=== PATIENT | female | born 1980 | race Caucasian/White ===

== ENCOUNTER 2024-04-21 03:32 | Emergency (ER) | payer SELFPAY ==
--- OUTSIDE RECORDS SUMMARY | 2024-04-21 03:35 | XMS REPORT | Continuity of Care Document ---
Author Name Unknown Address [address] [facility] [address] [place] [address] 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 Name Role Phone Deepti Wagner Attending Clinician Unavailable Payers Payer Name Policy Type Policy Number Effective Date Expirati on Date Source [place] [address] [id number] 2015 00:00:00 [facility] Problems Condition Name Condition Details Condition Category Status Onset Date Resolution Date Last Treatment Date Treating Clinician Comments Source [id number] ADD (attention deficit disorder) without hyperactiv ity Problem [facility] Swelling Swelling Problem [facility] Gastroesop hageal reflux disease GERD (gastroeso phageal reflux disease) Problem [facility] [id number] Elevated blood pressure reading with diagnosis of hypertensi on Problem [facility] Gallstone Gallstone Problem [facility] Seasonal allergy Seasonal allergies Problem [facility] Memory problem Memory problem Problem [facility] [id number] Psoriasis Problem [facility] Allergies, Adverse Reactions, Alerts Allergy Name Allergy Type Status Severity Reaction(s) Onset Date Inactive Date Treating Clinician Comments Source 0 Drug allergy Active Unknown [facility] adalimum ab adalimum ab Active Unknown [facility] Social History Social Habit Start Date Stop Date Quantity Comments Source Sex Assigned At [facility] History of Tobacco Use [facility] Medications Ordered Medication Name Filled Medication Name Start Date Stop Date Current Medication? Ordering Clinician Indication Dosage Frequency Signature (SIG) Comments Components Source amLODIPine Besylate 2.5 MG amLODIPine Besylate 2.5 MG 2017-11 00:00: 00 No 1{table t} amLODIPine Besylate 2.5 MG hydroCHLORO thiazide 12.5 MG hydroCHLORO thiazide 12.5 MG 2017-11 00:00: 00 No 1{table t_in e_morni ng} QD hydroCHLOR Othiazide 12.5 MG amLODIPine Besylate 2.5 MG amLODIPine Besylate 2.5 MG 2017-11 00:00: 00 No 1{table t} amLODIPine Besylate 2.5 MG hydroCHLORO thiazide 12.5 MG hydroCHLORO thiazide 12.5 MG 2017-11 00:00: 00 No 1{table t_in e_morni ng} QD hydroCHLOR Othiazide 12.5 MG Losartan Potassium Losartan Potassium Yes Na Wagner 2 tablet Commo n [facility] Ashlyna 0.15-0.03 &0.01 MG Ashlyna 0.15-0.03 &0.01 MG No 1{table t} QD Ashlyna 0.15-0.03 &0.01 MG hydroCHLORO thiazide 12.5 hydroCHLORO thiazide 12.5 No 1{table t_in e_morni ng} QD hydroCHLOR Othiazide 12.5 Adderall 20 MG Adderall 20 MG No 1{table t} BID Adderall 20 MG Stelara 90 MG/ML Stelara 90 MG/ML No Stelara 90 MG/ML Losartan Potassium 50 MG Losartan Potassium 50 MG No 2{table t} QD Losartan Potassium 50 MG Adderall 20 MG Adderall 20 MG No 1{table t} BID Adderall 20 MG Ashlyna 0.15-0.03 &0.01 MG Ashlyna 0.15-0.03 &0.01 MG No 1{table t} QD Ashlyna 0.15-0.03 &0.01 MG hydroCHLORO thiazide 12.5 hydroCHLORO thiazide 12.5 No 1{table t_in e_morni ng} QD hydroCHLOR Othiazide 12.5 Stelara 90 MG/ML Stelara 90 MG/ML No Stelara 90 MG/ML Losartan Potassium 50 MG Losartan Potassium 50 MG No 2{table t} QD Losartan Potassium 50 MG Encounters Start Date/Time End Date/Time Encounter Type Admission Type Attending [facility] Care Facility Care Department Encounter ID Source 2022-02-04 11:02:00 Outpatient WagnerDeepti pineda STLMLC STLMLC [id number] [facility] 2021-11-28 14:31:02 Outpatient Deepti Wagner STLMLC STLMLC [id number] [facility] 2021-11-28 14:10:43 Outpatient Deepti Wagner STLC STLMLC [id number] [facility] 2022-02-04 00:00:00 2022-02-04 00:00:00 OFFICE VISIT ESTAB PT LEVEL 1 STLMLC STLMLC [id number] [facility] 2021-11-07 00:00:00 2021-11-07 00:00:00 OFFICE VISIT ESTAB PT LEVEL 1 STLMLC STLMLC [id number] [facility] 2021-11-07 00:00:00 2021-11-07 00:00:00 (TEL) STLMLC STLMLC [id number] [facility] 2021-08-02 00:00:00 2021-08-02 00:00:00 Outpatient PRIV PRIV [id number] [facility] 2021-08-02 00:00:00 2021-08-02 00:00:00 Outpatient PRIV PRIV [id number] [facility] 2021-08-02 00:00:00 2021-08-02 00:00:00 Outpatient PRIV PRIV [id number] [facility] 2021-08-02 00:00:00 2021-08-02 00:00:00 Outpatient PRIV PRIV [id number] [facility] 2018-11-10 10:11:00 2018-11-10 10:11:00 Outpatient Amparo t [facility] [id number] [facility] 2018-10-12 09:08:00 2018-10-12 09:08:00 Outpatient [facility] [id number] [facility] 2018-10-05 11:00:00 2018-10-05 11:00:00 Outpatient [facility] [id number] [facility] Results Test Description Test Time Test Comments Results Result Co mments Source SARS-COV 2 Antigen SARS-COV 2 Antigen
[2024-04-21 04:24] LABS: Absolute Eosinophils 0.3 K/uL (0-0.5); Absolute Lymphocytes (CBC) 2.4 K/uL (0.7-4.9); Absolute Monocytes 0.8 K/uL (0.1-1.3); Absolute Neutrophil 8.7 K/uL (1.8-8.0); Basophils % 0.4 % (0-1.3); Eosinophils % 2.2 % (0-4.4); Hematocrit 36.2 % (36.0-45.0); Lymphocytes % 19.6 % (15.3-44.8); MCH 25.5 pg (27.0-35.0); MCHC 33.2 g/dL (32.0-36.0); MCV 76.9 fL (80-100); MPV 8.1 fL (7.6-11.3); Monocytes % 6.6 % (3.3-12.3); Neutrophils % 71.2 % (41.7-73.7); Platelets 322 thou/uL (152-406); Red Cell Distribution Width 13.9 % (12.1-15.2)
[2024-04-21] MEDS ORDERED: ONDANSETRON 4 MG/2 ML VIAL ONE (04:26)
[2024-04-21] MEDS ORDERED: NA CHLORIDE 0.9% 1,000 ML ONE (04:27)
[2024-04-21] MEDS ORDERED: MAGNES/ALUMIN/SIMET 30ML UCUP ONE (04:27)
[2024-04-21] MEDS ORDERED: PANTOPRAZOLE 40 MG INJ ONE (04:27)
[2024-04-21] MEDS ORDERED: FAMOTIDINE 20 MG/2 ML VIAL IV ONE (04:27)
[2024-04-21 04:36] LABS: Albumin 3.2 g/dL (3.4-5.0); Albumin/Globulin Ratio 0.8 (1.1-1.8); Anion Gap 9.1 mEq/L (5.0-15.0); Bilirubin Total 0.3 mg/dL (0.2-1.0); Potassium 3.1 mEq/L (3.5-5.1); Protein, Total 7.2 g/dL (6.4-8.2)
--- NOTE | 2024-04-21 08:02 | RAD REPORT ---
EXAM DESCRIPTION: CT - Chest Abdomen Pelvis W Cont - 04/21/2024 7:14 am CLINICAL HISTORY: Chest and abdomen pain. esophageal pain sensation of foreign body COMPARISON: No comparisons TECHNIQUE: Approximately 100 mL nonionic IV contrast was administered to the patient. All CT scans are performed using dose optimization technique as appropriate and may include automated exposure control or mA/KV adjustment according to patient size. FINDINGS: There is mild linear atelectasis in both lung bases. The lungs are otherwise clear.No obi s esophageal abnormality seen.No pleural or pericardial effusion.No intrathoracic adenopathy. The liver demonstrates diffuse fatty infiltration. The spleen, pancreas, adrenal glands and kidneys a re within normal limits. Small benign cyst superior left kidney. Cholecystectomy clips. No bowel obstruction, free air, free fluid or abscess. Normal appendix. Moderate stool is present thr oughout the colon. Small fat containing umbilical hernia. No pathologic lymphadenopathy in the abdome n or pelvis. No worrisome osseous finding. IMPRESSION: No acute abnormality is detected.Grossly, no esophageal abnormality seen. Upper endoscop y would be suggested if clinical symptomology persists.
[2024-04-21 09:45] VITALS: BP 119/71; TEMP 98.1; O2SAT 97
--- NOTE | 2024-04-21 15:04 | ER ---
Nurse's Notes [facility] Name: Shelley Edmonds Age: 43 yrs Sex: Female : 1980 Arrival Date: 04/21/2024 Time: 03:32 Bed IW10 Private MD: Diagnosis: Dysphagia, unspecified;Dysphagia;Gastro-esophageal reflux disease with esophagitis Presentation: 04/21 03:50 Chief complaint: Patient states: SHE FEELS LIKE SOMETHING IN HER ESOPHAGUS SINCE lc8 YESTERDAY. REPORTS DIFFICULTY SWALLOWING. +NAUSEA. 03:50 Method Of Arrival: Ambulatory lc8 03:50 Coronavirus screen: Vaccine status: Patient reports receiving the 2nd dose of the covid lc8 vaccine. Ebola Screen: Patient negative for fever greater than or equal to 101.5 degrees Fahrenheit, and additional compatible Ebola Virus Disease symptoms Patient denies exposure to infectious person. Patient denies travel to an Ebola-affected area in the 21 days before illness onset. Initial Sepsis Screen: Does the patient meet any 2 criteria? No. Patient's initial sepsis screen is negative. Does the patient have a suspected source of infection? No. Patient's initial sepsis screen is negative. Risk Assessment: Do you want to hurt yourself or someone else? Patient reports no desire to harm self or others. Onset of symptoms was April 19, 2024. 03:50 Acuity: LUDA 3 lc8 Triage Assessment: 03:50 General: Appears in no apparent distress. comfortable, Behavior is calm, cooperative, lc8 appropriate for age. 03:50 EENT: Reports difficulty swallowing since YESTERDAY. Neuro: Level of Consciousness is lc8 awake, alert, obeys commands, Oriented to person, place, time, situation, Appropriate for age. Cardiovascular: Denies Capillary refill < 3 seconds Patient's skin is warm and dry. Respiratory: No deficits noted. Airway is patent Respiratory effort is even, unlabored, Respiratory pattern is regular, symmetrical, Denies. GI: Reports nausea, vomiting. : No signs and/or symptoms were reported regarding the genitourinary system. Denies. 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 - Infectious Disease History:: Denies. - Social history:: Smoking status: Patient reports the use of cigarette tobacco products, denies chronic smoking, but will smoke occasionally. - Family history:: not pertinent. Screenin:50 [facility] ED Fall Risk Assessment (Adult) History of falling in the last 3 months, lc8 including since admission No falls in past 3 months (0 pts) Confusion or Disorientation No (0 pts) Intoxicated or Sedated No (0 pts) Impaired Gait No (0 pts) Mobility Assist Device Used No (0 pt) Altered Elimination No (0 pt) Score/Fall Risk Level 0 - 2 = Low Risk. 03:50 [facility] ED Fall Risk Assessment (Adult) Score/Fall Risk Level 0 - 2 = Low Risk lc8 Oriented to surroundings, Maintained a safe environment, Hourly rounding (assess needs \T\ fall precautionary measures) done. Abuse screen: Denies threats or abuse. Denies injuries from another. Nutritional screening: No deficits noted. Tuberculosis screening: No symptoms or risk factors identified. Assessment: 03:50 Reassessment: SEE TRIAGE. lc8 05:00 Reassessment: Patient appears in no apparent distress at this time. Patient and/or lc8 family updated on plan of care and expected duration. Pain level reassessed. 05:00 General: Appears in no apparent distress. comfortable. Pain: Denies pain. lc8 06:00 Reassessment: Patient and/or family updated on plan of care and expected duration. Pain lc8 level reassessed. 06:46 Reassessment: No changes from previously documented assessment. lc8 07:37 Reassessment: No changes from previously documented assessment. Patient and/or family ap3 updated on plan of care and expected duration. Pain level reassessed. patient still feels as though something is stuck in her throat. 07:38 General: Appears in no apparent distress. comfortable, Behavior is calm, cooperative, ap3 appropriate for age. Vital Signs: 03:50 BP 121 / 76; Pulse 96; Resp 16; Temp 98.1(O); Pulse Ox 97% ; Weight 89.36 kg; Height 5 8 ft. 2 in. ; 05:00 BP 113 / 66; Pulse 88; Resp 17; Pulse Ox 97% on R/A; lc8 06:00 BP 111 / 51; Pulse 84; Resp 17; Pulse Ox 98% ; lc8 06:30 BP 125 / 61; Pulse 88; Resp 17; Pulse Ox 98% ; lc8 07:38 BP 119 / 71; Pulse 81; Resp 18; Pulse Ox 97% on R/A; ap3 03:50 Body Mass Index 36.03 (89.36 kg, 157.48 cm) lc8 Murphy Coma Score: 04:15 Eye Response: spontaneous(4). Motor Response: obeys commands(6). Verbal Response: sp4 oriented(5). Total: 15. ED Course: 03:35 Patient arrived in ED. jj6 03:49 Hai Tsai MD is Attending Physician. sp4 03:50 Patient has correct armband on for positive identification. Bed in low position. Call lc8 light in reach. Side rails up X 1. 03:50 Provided Education on: MEDICATION. lc8 04:06 Triage completed. lc8 04:15 Inserted saline lock: 20 gauge in right antecubital area, using aseptic technique. lc8 07:15 Jacki Pedro, RN is Primary Nurse. ap3 07:16 CT Chest, Abdomen, Pelvis - W/Contrast In Process Unspecified. EDMS 07:39 Attending Physician role handed off by Hai Tsai MD david 07:39 Rojelio Bone MD is Attending Physician. david 07:55 EKG done, by ED staff, reviewed by Rojelio Bone MD. ap3 08:01 Troponin High Sensitivity Sent. ap3 09:15 Manpreet Maki MD is Referral Physician. david 09:28 No provider procedures requiring assistance completed. IV discontinued, intact, ap3 bleeding controlled, No redness/swelling at site. Pressure dressing applied. 09:29 Splint/sling/ice applied as appropriate. ap3 Administered Medications: 04:39 Drug: Famotidine IVP 20 mg IVP once; dilute with 10 mL 0.9% NaCl; give over 2 minutes lc8 Route: IVP; Site: right antecubital; 04:39 Drug: Pantoprazole IVP 40 mg IVP once Route: IVP; Site: right antecubital; lc8 09:29 Follow up: Response: No adverse reaction ap3 04:39 Drug: Alum-Mag Hydroxide-Simeth PO Suspension (200 mg-200 mg-20 mg/5 mL) 30 ml PO once lc8 Route: PO; 09:30 Follow up: Response: No adverse reaction ap3 04:40 Drug: NS 0.9% IV 1000 ml IV at 1 bolus Per protocol; 1000 mL bolus Route: IV; Rate: 1 lc8 bolus; Site: right antecubital; 04:40 Drug: Ondansetron IVP 4 mg IVP once; over 2 minutes Route: IVP; Site: right antecubital;lc8 Medication: 03:50 VIS not applicable for this client. lc8 Outcome: 09:16 Discharge ordered by . david 09:28 Discharged to home ambulatory, ap3 09:28 Condition: good 09:28 Discharge instructions given to patient, Instructed on discharge instructions, follow up and referral plans. medication usage, Demonstrated understanding of instructions, follow-up care, medications, Prescriptions given X 1, 09:30 Patient left the ED. ap3 17:11 Patient left the ED. bd Signatures: Dispatcher [employer] EDMS Eladia Jo Corey, MD MD cha Prokisch, Amanda RN RN ap3 Breanna Austin Sergey, MD MD sp4 Amy Rouse, RN RN lc8 Corrections: (The following items were deleted from the chart) 07:39 07:38 BP 119 / 71; ap3 ap3
--- NOTE | 2024-04-21 15:04 | EDPHYS ---
Physician Documentation [facility] Name: Shelley Edmonds Age: 43 yrs Sex: Female : 1980 Arrival Date: 04/21/2024 Time: 03:32 Bed IW10 Private MD: Rojelio Mclaughlin HPI: 04/21 03:50 This 43 yrs old Female presents to ER via Unassigned with complaints of FEELS sp4 LIKE SOMETHING IS LODGED IN ESOPHAGAS. HARD TO SWALLOW AND PAIN. 04:14 43-year-old female with history of acid reflux on daily omeprazole presents with acute sp4 onset pain in the chest and sensation of foreign body in the esophagus starting yesterday morning. Patient denies actually swallowing anything that has lodged in esophagus but states she feels like there is a golf ball stuck in esophagus. . 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 - Infectious Disease History:: Denies. - Social history:: Smoking status: Patient reports the use of cigarette tobacco products, denies chronic smoking, but will smoke occasionally. - Family history:: not pertinent. ROS: 04:15 Constitutional: Negative for fever, chills, and weight loss, positive chest pain sp4 positive sensation of foreign body in esophagus 04:15 All other systems are negative, Exam: 04:15 Constitutional: This is a well developed, well nourished patient who is awake, alert, sp4 and in no acute distress. Head/Face: Normocephalic, atraumatic. Eyes: Pupils equal round and reactive to light, extra-ocular motions intact. Lids and lashes normal. Conjunctiva and sclera are not injected. Cornea within normal limits. Periorbital areas with no swelling, redness, or edema. ENT: Nares patent. No nasal discharge, no septal abnormalities noted. Tympanic membranes are normal and external auditory canals are clear. Oropharynx with no redness, swelling, or masses, exudates, or evidence of obstruction, uvula midline. Mucous membranes moist. Neck: Trachea midline, no thyromegaly or masses palpated, and no cervical lymphadenopathy. Supple, full range of motion without nuchal rigidity, or vertebral point tenderness. Chest/axilla: Normal chest wall appearance and motion. Nontender with no deformity. No lesions are appreciated. Cardiovascular: Regular rate and rhythm with a normal S1 and S2. No gallops, murmurs, or rubs. Normal PMI, no JVD. No pulse deficits. Respiratory: Lungs have equal breath sounds bilaterally, clear to auscultation and percussion. No rales, rhonchi or wheezes noted. No increased work of breathing, no retractions or nasal flaring. Abdomen/GI: Soft, with normal bowel sounds. No distension or tympany. No guarding or rebound. No evidence of tenderness throughout. Back: No spinal tenderness. No costovertebral tenderness. Skin: Warm, dry with normal turgor. Normal color with no rashes, no lesions, and no evidence of cellulitis. MS/ Extremity: Pulses equal, no cyanosis. Neurovascular intact. Full, normal range of motion. Neuro: Awake and alert, GCS 15, oriented to person, place, time, and situation. Cranial nerves II-XII grossly intact. Motor strength 5/5 in all extremities. Sensory grossly intact. Psych: Awake, alert, with orientation to person, place and time. Behavior, mood, and affect are within normal limits 17:08 ECG was reviewed by the Attending Physician. [facility] Vital Signs: 03:50 BP 121 / 76; Pulse 96; Resp 16; Temp 98.1(O); Pulse Ox 97% ; Weight 89.36 kg; Height 5 lc8 ft. 2 in. ; 05:00 BP 113 / 66; Pulse 88; Resp 17; Pulse Ox 97% on R/A; lc8 06:00 BP 111 / 51; Pulse 84; Resp 17; Pulse Ox 98% ; lc8 06:30 BP 125 / 61; Pulse 88; Resp 17; Pulse Ox 98% ; lc8 07:38 BP 119 / 71; Pulse 81; Resp 18; Pulse Ox 97% on R/A; ap3 03:50 Body Mass Index 36.03 (89.36 kg, 157.48 cm) 8 Eagle Coma Score: 04:15 Eye Response: spontaneous(4). Motor Response: obeys commands(6). Verbal Response: sp4 oriented(5). Total: 15. MDM: 03:51 Patient medically screened. sp4 07:25 Differential Diagnosis altered mental status, sepsis, Esophageal food impaction. Data sp4 reviewed: vital signs, nurses notes, lab test result(s), radiologic studies, CT scan. Transition of care: After a detail discussion of the patient's case, care is transferred to Rojelio Bone MD. 17:09 Care significantly affected by the following chronic conditions: gerd. ED course: pt is david eating and drinking well, only pain with swallow but able to do both without difficulty. 04/21 03:50 Order name: CBC with Diff; Complete Time: 07:00 [facility] 04/21 03:50 Order name: CMP; Complete Time: 07:00 [facility] 04/21 03:50 Order name: Lipase; Complete Time: 07:00 [facility] 04/21 07:40 Order name: Troponin High Sensitivity; Complete Time: 09:14 [facility] 04/21 07:00 Order name: CT Chest, Abdomen, Pelvis - W/Contrast; Complete Time: 08:10 [facility] 04/21 07:40 Order name: EKG; Complete Time: 07:40 [facility] 04/21 03:50 Order name: IV Saline Lock; Complete Time: 04:39 [facility] 04/21 03:50 Order name: Labs collected and sent; Complete Time: 04:40 [facility] 04/21 07:40 Order name: EKG - Nurse/Tech; Complete Time: 07:55 [facility] 04/21 07:42 Order name: PO challenge: juice; Complete Time: 08:01 [facility] EC:08 Rate is 80 beats/min. Rhythm is regular. QRS [place] is Normal. [place] interval is normal. QRS david interval is normal. QT interval is prolonged at 505 msec. No Q waves. T waves are Normal. No ST changes noted. Clinical impression: NSR w/ Non-specific ST/T Changes and No evidence of ischemia. Administered Medications: 04:39 Drug: Famotidine IVP 20 mg IVP once; dilute with 10 mL 0.9% NaCl; give over 2 minutes lc8 Route: IVP; Site: right antecubital; 04:39 Drug: Pantoprazole IVP 40 mg IVP once Route: IVP; Site: right antecubital; lc8 09:29 Follow up: Response: No adverse reaction ap3 04:39 Drug: Alum-Mag Hydroxide-Simeth PO Suspension (200 mg-200 mg-20 mg/5 mL) 30 ml PO once lc8 Route: PO; 09:30 Follow up: Response: No adverse reaction ap3 04:40 Drug: NS 0.9% IV 1000 ml IV at 1 bolus Per protocol; 1000 mL bolus Route: IV; Rate: 1 lc8 bolus; Site: right antecubital; 04:40 Drug: Ondansetron IVP 4 mg IVP once; over 2 minutes Route: IVP; Site: right antecubital;lc8 Disposition Summary: 04/21/24 09:16 Discharge Ordered Notes: Location: Home david Problem: new david Symptoms: have improved david Condition: Stable david Diagnosis - Dysphagia, unspecified david - Dysphagia david - Gastro-esophageal reflux disease with esophagitis david Followup: david - With: Private Physician - When: 2 - 3 days - Reason: Recheck today's complaints, Continuance of care, Re-evaluation by your physician Followup: david - With: Manpreet Maki MD - When: 2 - 3 days - Reason: Recheck today's complaints, Continuance of care, Re-evaluation by your physician Discharge Instructions: - Discharge Summary Sheet david - Food Choices for Gastroesophageal Reflux Disease, Adult david - Dysphagia david - Esophagitis david - Gastroesophageal Reflux Disease, Adult david - Gastroesophageal Reflux Disease, Adult, [id number] david - Indigestion, [id number] [facility] Forms: - Medication Reconciliation Form david - Antibiotic Education david - Prescription Opioid Use david - Patient Portal Instructions [facility] - Leadership Thank You Letter [facility] Prescriptions: - Protonix 40 mg Oral tablet, delayed release (enteric coated) - take 1 tablet ORAL route every 12 hours; 60 tablet; Refills: 0, Product [facility] Selection Permitted Signatures: Dispatcher [employer] EDRojelio Ty MD MD cha Potepalov, Sergey, MD MD sp4 Amy Rouse RN RN lc8 Jacki Pedro RN ap3 Corrections: (The following items were deleted from the chart) 03:51 03:51 CBC+H.LAB.BRZ ordered. EDMS EDMS 03:51 03:51 COMPREHENSIVE METABOLIC PANEL+C.LAB.BRZ ordered. EDMS EDMS 03:51 03:51 LIPASE+C.LAB.BRZ ordered. EDMS EDMS
== END 2024-04-21 17:11 | disposition home or self-care (01) ==
LOC: ER 03:32
DX: K21.00 Gastro-esophageal reflux disease with esophagitis, without bleeding (principal)
CPT/HCPCS: 36415; 71260; 74177; 80053; 83690; 84484; 85025; 93005; C9113; J2405; J7030; Q9967

== ENCOUNTER 2024-11-04 20:14 | Emergency (ER) | payer OTHER, SELFPAY ==
--- OUTSIDE RECORDS SUMMARY | 2024-11-04 20:16 | XMS REPORT | Continuity of Care Document ---
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 Deepti Wagner Attending Clinician Unavailable Payers Payer Name Policy Type Policy Number Effective Date Expirati on Date Source [place] [address] [id number] 2015 00:00:00 [facility] Problems Condition Name Condition Details Condition Category Status Onset Date Resolution Date Last Treatment Date Treating Clinician Comments Source [id number] ADD (attention deficit disorder) without hyperactiv ity Problem Common [facility] Swelling Swelling Problem [facility] Gastroesop hageal reflux disease GERD (gastroeso phageal reflux disease) Problem [facility] [id number] Elevated blood pressure reading with diagnosis of hypertensi on Problem Common [facility] Gallstone Gallstone Problem Comm on [facility] Seasonal allergy Seasonal allergies Problem [facility] Memory problem Memory problem Problem [facility] [id number] Psoriasis Problem [facility] Allergies, Adverse Reactions, Alerts Allergy Name Allergy Type Status Severity Reaction(s) Onset Date Inactive Date Treating Clinician Comments Source 0 Drug allergy Active Unknown [facility] adalimum ab adalimum ab Active Unknown [facility] Social History Social Habit Start Date Stop Date Quantity Comments Source Sex Assigned At [facility] History of Tobacco Use Common [facility] Medications Ordered Medication Name Filled Medication Name [...] Yes Na Wagner 2 tablet Commo n [facility] Ashlyna 0.15-0.03 &0.01 MG Ashlyna 0.15-0.03 &0.01 [...] End Date/Time Encounter Type Admission Type Attending [facility] Care Facility Care Department Encounter ID Source 2022-02-04 11:02:00 Outpatient Deepti Wagner STLMLC STLMLC [id number] [facility] 2021-11-28 14:31:02 Outpatient Deepti Wagner STLMLC STLMLC [id number] [facility] 2021-11-28 14:10:43 Outpatient Deepti Wagner STLC STLMLC [id number] [facility] 2022-02-04 00:00:00 2022-02-04 00:00:00 OFFICE VISIT ESTAB PT LEVEL 1 STLMLC STLMLC [id number] [facility] 2021-11-07 00:00:00 2021-11-07 00:00:00 OFFICE VISIT ESTAB PT LEVEL 1 STLMLC STLMLC [id number] [facility] 2021-11-07 00:00:00 2021-11-07 00:00:00 (TEL) STLMLC STLMLC [id number] [facility] 2021-08-02 00:00:00 2021-08-02 00:00:00 Outpatient PRIV PRIV [id number] [facility] 2021-08-02 00:00:00 2021-08-02 00:00:00 Outpatient PRIV PRIV [id number] [facility] 2021-08-02 00:00:00 2021-08-02 00:00:00 Outpatient PRIV PRIV [id number] [facility] 2021-08-02 00:00:00 2021-08-02 00:00:00 Outpatient PRIV PRIV [id number] [facility] 2018-11-10 10:11:00 2018-11-10 10:11:00 Outpatient Amparo t [facility] [id number] [facility] 2018-10-12 09:08:00 2018-10-12 09:08:00 Outpatient [facility] [id number] [facility] 2018-10-05 11:00:00 2018-10-05 11:00:00 Outpatient [facility] [id number] [facility] Results Test Description Test Time Test Comments Results Result Co mments Source SARS-COV 2 Antigen SARS-COV 2 Antigen
[2024-11-04 20:46] LABS: Absolute Basophils 0.1 K/uL (0-0.5); Absolute Eosinophils 0.3 K/uL (0-0.5); Absolute Lymphocytes (CBC) 2.9 K/uL (0.7-4.9); Absolute Monocytes 0.7 K/uL (0.1-1.3); Absolute Neutrophil 4.9 K/uL (1.8-8.0); Basophils % 1.4 % (0-1.3); Hematocrit 38.3 % (36.0-45.0); MCH 27.2 pg (27.0-35.0); MCHC 34.1 g/dL (32.0-36.0); MCV 79.8 fL (80-100); MPV 8.4 fL (7.6-11.3); Monocytes % 7.5 % (3.3-12.3); Neutrophils % 55.1 % (41.7-73.7); Nucleated Red Blood Cells % 0.1 % (0-0); Platelets 288 thou/uL (152-406); RBC Red Blood Cell Count 4.79 M/uL (3.86-4.86); Red Cell Distribution Width 14.9 % (12.1-15.2)
[2024-11-04 20:48] LABS: PT Prothrombin Time 12.6 SECONDS (9.4-12.5); Protime INR 1.13
[2024-11-04 21:05] LABS: ALT/SGPT 100 U/L (13-56); AST/SGOT 69 U/L (15-37); Albumin 3.5 g/dL (3.4-5.0); Albumin/Globulin Ratio 0.8 (1.1-1.8); Alkaline Phosphatase 135 U/L (45-117); Anion Gap 9.7 mEq/L (5.0-15.0); BUN Blood Urea Nitrogen 10 mg/dL (7-18); Bicarbonate 27 mEq/L (21-32); Bilirubin Direct < 0.2 mg/dL (0-0.2); Bilirubin Indirect, Calculated 0.2 mg/dL (0.2-0.8); Bilirubin Total 0.4 mg/dL (0.2-1.0); Globulin 4.4 g/dL (2.3-3.5); Glomerular Filtration Rate 113 ml/min (=/>90); Glucose Level 93 mg/dL (74-106); NT PRO-BNP 50 pg/mL (<125); Potassium 2.7 mEq/L (3.5-5.1); Protein, Total 7.9 g/dL (6.4-8.2); Sodium Level 136 mEq/L (136-145); Troponin High Sensitivity 13.1 pg/mL (<58.9)
[2024-11-04] MEDS ORDERED: GABAPENTIN 300 MG CAP ONE (21:16)
[2024-11-04] MEDS ORDERED: ONDANSETRON 4 MG/2 ML VIAL ONE (21:16)
[2024-11-04] MEDS ORDERED: hydroCHLOROthiazide 25 MG TAB ONE (21:16)
--- NOTE | 2024-11-04 21:16 | RAD REPORT ---
EXAMINATION: ONE VIEW CHEST XR CLINICAL INDICATION: CHEST PAIN TECHNIQUE: Frontal chest projection is submitted. Examination is limited by patient positioning and t echnique. COMPARISON: No prior exam. FINDINGS: Mild interstitial pulmonary edema may be present. Heart is mildly enlarged in size. No displaced frac tures identified. IMPRESSION: Possible mild CHF pattern.
[2024-11-04] MEDS ORDERED: MORPHINE 4 MG/ML SYR ONE (21:17)
[2024-11-04] MEDS ORDERED: LOSARTAN POTASSIUM 50 MG TABLET ONE (21:17)
[2024-11-04] MEDS ORDERED: NA CHLORIDE 0.9% 1,000 ML ONE (21:17)
--- NOTE | 2024-11-04 21:46 | RAD REPORT ---
EXAM: CTA of the chest, abdomen and pelvis HISTORY: Chest pain and back pain chest pain , rule out dissection COMPARISON: None TECHNIQUE: Multiple contiguous axial images were obtained a CTA of the chest and abdomen with contras t per aortic dissection protocol. This involves 3D reconstructions, MIPs, volume rendered images and/or shaded surface rendering. One or more of the following dose reduction techniques were used: Au tomated exposure control, adjustment of the mA and/or kV according to patient size, and/or iterative reconstruction. Unless otherwise specified, incidental findings do not require dedicated im aging follow-up. Sagittal and coronal 3-D MIP reformats were performed. FINDINGS: PULMONARY ARTERIES: Normal in caliber without filling defects to suggest pulmonary emboli. ASCENDING THORACIC AORTA: Normal caliber without evidence of dissection or aneurysmal dilatation. DESCENDING THORACIC AORTA: Normal caliber without evidence of dissection or aneurysmal dilatation. ABDOMINAL AORTA: Normal caliber without evidence of dissection or aneurysmal dilatation. CELIAC TRUNK: Patent. SMA: Patent LUCIO: Patent RENAL ARTERIES: Bilateral single renal arteries without significant atherosclerotic disease. MEDIASTINUM: No hilar or mediastinal lymphadenopathy. LUNGS: No focal infiltrates or masses. PLEURAL SPACE: No pleural effusion or pneumothorax. LIVER: Liver is enlarged with diffuse fatty alteration.. Cholecystomy clips. SPLEEN: Unremarkable. PANCREAS: Unremarkable. KIDNEYS: Unremarkable. ADRENALS: Unremarkable. BOWEL: Unremarkable. RETROPERITONEUM: No lymphadenopathy. BONES: Unremarkable ADDITIONAL FINDINGS: Moderate fat-containing ventral hernia. IMPRESSION: No evidence of thoracic or abdominal aortic aneurysm or dissection. Advanced fatty liver.
[2024-11-04] MEDS ORDERED: HYDROCODONE/APAP 5/325 MG TAB ONE (23:08)
[2024-11-04] MEDS ORDERED: DIAZEPAM 5 MG TABLET ONE (23:08)
--- NOTE | 2024-11-04 23:58 | ER ---
Nurse's Notes [facility] Name: Shelley Edmonds Age: 44 yrs Sex: Female : 1980 Arrival Date: 11/04/2024 Time: 20:14 Bed 12 Private MD: Diagnosis: Chest pain, unspecified;Uncontrolled hypertension, Acute anxiety, noncardiac chest pain Presentation: 11/04 20:16 Chief complaint: Patient states: chest pain and high BP X4 days. out of BP meds X3 lg3 months. Coronavirus screen: Client denies travel out of the [place] in the last 14 days. At this time, the client does not indicate any symptoms associated with coronavirus-19. Ebola Screen: No symptoms or risks identified at this time. Risk Assessment: Do you want to hurt yourself or someone else? Patient reports no desire to harm self or others. Onset of symptoms is unknown. 20:16 Method Of Arrival: Ambulatory lg3 20:16 Acuity: LUDA 3 lg3 20:26 Initial Sepsis Screen: Does the patient meet any 2 criteria? No. Patient's initial vc1 sepsis screen is negative. Does the patient have a suspected source of infection? No. Patient's initial sepsis screen is negative. Triage Assessment: 20:17 General: Appears in no apparent distress. uncomfortable, Behavior is calm, cooperative. lg3 Pain: Complains of pain in chest Pain does not radiate. EENT: No deficits noted. No signs and/or symptoms were reported regarding the EENT system. Neuro: No deficits noted. Solorzano Agitation-Sedation Scale (RASS): 0 - Alert and Calm Level of Consciousness is awake, alert, obeys commands, Oriented to person, place, time, situation. Cardiovascular: Reports chest pain, Capillary refill < 3 seconds Clubbing of nail beds is absent JVD is absent Patient's skin is warm and dry. Respiratory: No deficits noted. Airway is patent Respiratory effort is even, unlabored, Respiratory pattern is regular, symmetrical. GI: No deficits noted. No signs and/or symptoms were reported involving the gastrointestinal system. Abdomen is round non-distended. : No signs and/or symptoms were reported regarding the genitourinary system. Derm: No deficits noted. No signs and/or symptoms reported regarding the dermatologic system. Skin is intact, is healthy with good turgor, Skin is dry, Skin is normal, Skin temperature is warm. Musculoskeletal: No deficits noted. No signs and/or symptoms reported regarding the musculoskeletal system. Circulation, motion, and sensation intact. Range of motion: intact in all extremities. 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 - Infectious Disease History:: Denies. - Social history:: Smoking status: Patient reports the use of cigarette tobacco products, smokes one-half pack cigarettes per day, Patient uses alcohol, only on a social basis. Patient/guardian denies using street drugs. - Family history:: not pertinent. Screenin:27 [facility] ED Fall Risk Assessment (Adult) History of falling in the last 3 months, vc1 including since admission No falls in past 3 months (0 pts) Confusion or Disorientation No (0 pts) Intoxicated or Sedated No (0 pts) Impaired Gait No (0 pts) Mobility Assist Device Used No (0 pt) Altered Elimination No (0 pt) Score/Fall Risk Level 0 - 2 = Low Risk Oriented to surroundings, Maintained a safe environment, Educated pt \T\ family on fall prevention, incl call for assistance when getting out of bed. Abuse screen: Denies threats or abuse. Nutritional screening: No deficits noted. Tuberculosis screening: No symptoms or risk factors identified. Assessment: 21:20 General: Appears in no apparent distress. uncomfortable, Behavior is calm, cooperative, cp4 appropriate for age. 21:20 Pain: Complains of pain in chest Pain does not radiate. Pain currently is 10 out of 10 cp4 on a pain scale. Pain began suddenly. Neuro: Level of Consciousness is awake, alert, obeys commands, Oriented to person, place, time, situation. Cardiovascular: Patient's skin is warm and dry. Rhythm is sinus rhythm. Respiratory: Airway is patent Respiratory effort is even, unlabored. GI: No deficits noted. : No deficits noted. EENT: No deficits noted. Derm: No deficits noted. Musculoskeletal: No deficits noted. 11/05 01:13 Reassessment: Patient appears in no apparent distress at this time. Patient and/or vc1 family updated on plan of care and expected duration. Pain level reassessed. Patient is alert, oriented x 3, equal unlabored respirations, skin warm/dry/pink. Patient denies pain at this time. Patient states feeling better. Patient states symptoms have improved. Vital Signs: 11/04 20:16 BP 171 / 104; Pulse 82; Resp 17; Temp 96.7(TE); Pulse Ox 100% on R/A; Weight 81.65 kg; lg3 Height 5 ft. 2 in. ; 11/05 01:13 BP 140 / 93; Pulse 80; Resp 18; Temp 97.9; Pulse Ox 95% ; vc1 11/04 20:16 Body Mass Index 32.92 (81.65 kg, 157.48 cm) lg3 Sanborn Coma Score: 11/04 23:55 Eye Response: spontaneous(4). Motor Response: obeys commands(6). Verbal Response: sp4 oriented(5). Total: 15. ED Course: 20:15 Patient arrived in ED. jj6 20:17 Triage completed. lg3 20:17 Arm band placed on right wrist. lg3 20:22 EKG done, by ED staff. Patient maintains SpO2 saturation greater than 95% on room air. lg3 20:24 Hai Tsai MD is Attending Physician. sp4 20:29 Patient placed in waiting room. EKG completed in triage. Results shown to MD. vc1 20:38 Basic Metabolic Panel Sent. vc1 20:38 CBC with Diff Sent. vc1 20:38 LFT's Sent. vc1 20:38 NT PRO-BNP Sent. vc1 20:38 PT-INR Sent. vc1 20:38 Troponin HS Sent. vc1 21:12 XRAY Chest (1 view) In Process Unspecified. EDMS 21:12 Shira Gutierrez is Primary Nurse. cp4 21:20 Bed in low position. Call light in reach. Side rails up X 1. Client placed on 4 continuous cardiac and pulse oximetry monitoring. NIBP monitoring applied. laboratory monitor on. Pulse ox on. NIBP on. 21:20 No provider procedures requiring assistance completed. Inserted saline lock: 20 gauge cp4 in right antecubital area, using aseptic technique. 21:40 CT Aorta for Dissection In Process Unspecified. EDMS 23:57 Davey Cruz MD is Referral Physician. sp4 11/05 01:14 Provided Education on: f/u with PCP. vc1 01:14 IV discontinued, intact, bleeding controlled, No redness/swelling at site. Pressure vc1 dressing applied. Administered Medications: 11/04 21:25 Drug: Losartan PO 100 mg PO once Route: PO; cp4 22:00 Follow up: Response: No adverse reaction cp4 21:25 Drug: Hydrochlorothiazide PO 25 mg PO once Route: PO; cp4 22:00 Follow up: Response: No adverse reaction cp4 21:25 Drug: morphine IVP or IV 4 mg IVP once over 4 mins Route: IVP; Infused Over: 4 mins; cp4 Site: right antecubital; 22:01 Follow up: Response: No adverse reaction cp4 21:25 Drug: Gabapentin PO 900 mg PO once Route: PO; cp4 22:01 Follow up: Response: No adverse reaction cp4 21:25 Drug: Ondansetron IVP 4 mg IVP once; over 2 minutes Route: IVP; Site: right antecubital;cp4 22:01 Follow up: Response: No adverse reaction cp4 21:25 Drug: NS 0.9% IV 1000 ml IV at 1 bolus Per protocol; to be given as a bolus over 60 cp4 minutes Route: IV; Rate: 1 bolus; Site: right antecubital; 22:25 Follow up: IV Status: Completed infusion; IV Intake: 1000ml vc1 23:10 Drug: Diazepam PO 5 mg PO once Route: PO; cp4 11/05 01:14 Follow up: Response: No adverse reaction; Marked relief of symptoms vc1 11/04 23:10 Drug: HYDROcodone-acetaminophen PO 5 mg-325 mg 2 tabs PO once Route: PO; cp4 11/05 01:14 Follow up: Response: No adverse reaction; Marked relief of symptoms vc1 Medication: 11/04 20:28 VIS not applicable for this client. vc1 Intake: 22:25 IV: 1000ml; Total: 1000ml. vc1 Outcome: 23:58 Discharge ordered by MD. sp4 11/05 01:13 Discharged to home ambulatory, with family, vc1 Condition: good Discharge instructions given to patient, Instructed on discharge instructions, follow up and referral plans. medication usage, Demonstrated understanding of instructions, follow-up care, medications, Prescriptions given X 4, 01:14 Patient left the ED. vc1 Signatures: Dispatcher [employer] EDKristina Jones RN RN lg3 Breanna Austin jj6 Nunu Olvera RN RN vc1 Hai Tsai MD MD sp4 Shira Gutierrez 4 Corrections: (The following items were deleted from the chart) 11/04 20:21 20:16 Chief complaint: Patient states: chest pain and high BP X4 days lg3 lg3 20:21 20:16 Temp 96.7F Temporal; 81.65 kg; Height 5 ft. 2 in.; BMI: 32.9; lg3 lg3
--- NOTE | 2024-11-04 23:58 | EDPHYS ---
Physician Documentation [facility] Name: Shelley Edmonsd Age: 44 yrs Sex: Female : 1980 Arrival Date: 11/04/2024 Time: 20:14 Bed 12 Private MD: ED Physician Hai Tsai HPI: 11/04 20:53 This 44 yrs old Female presents to ER via Ambulatory with complaints of Chest sp4 Pain, High Blood Pressure. 11/05 21:08 44-year-old female presents with chest pain discomfort and also elevated blood sp4 pressure. . 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 - Infectious Disease History:: Denies. - Social history:: Smoking status: Patient reports the use of cigarette tobacco products, smokes one-half pack cigarettes per day, Patient uses alcohol, only on a social basis. Patient/guardian denies using street drugs. - Family history:: not pertinent. ROS: 11/05 21:08 Constitutional: Negative for fever, chills, and weight loss, positive chest pain and sp4 elevated blood pressure All other systems are negative, Exam: 11/04 23:55 Constitutional: This is a well developed, well nourished patient who is awake, alert, sp4 and in no acute distress. Head/Face: Normocephalic, atraumatic. Eyes: Pupils equal round and reactive to light, extra-ocular motions intact. Lids and lashes normal. Conjunctiva and sclera are not injected. Cornea within normal limits. Periorbital areas with no swelling, redness, or edema. ENT: Nares patent. No nasal discharge, no septal abnormalities noted. Tympanic membranes are normal and external auditory canals are clear. Oropharynx with no redness, swelling, or masses, exudates, or evidence of obstruction, uvula midline. Mucous membranes moist. Neck: Trachea midline, no thyromegaly or masses palpated, and no cervical lymphadenopathy. Supple, full range of motion without nuchal rigidity, or vertebral point tenderness. Chest/axilla: Normal chest wall appearance and motion. Nontender with no deformity. No lesions are appreciated. Cardiovascular: Regular rate and rhythm with a normal S1 and S2. No gallops, murmurs, or rubs. Normal PMI, no JVD. No pulse deficits. Respiratory: Lungs have equal breath sounds bilaterally, clear to auscultation and percussion. No rales, rhonchi or wheezes noted. No increased work of breathing, no retractions or nasal flaring. Abdomen/GI: Soft, with normal bowel sounds. No distension or tympany. No guarding or rebound. No evidence of tenderness throughout. Back: No spinal tenderness. No costovertebral tenderness. Skin: Warm, dry with normal turgor. Normal color with no rashes, no lesions, and no evidence of cellulitis. MS/ Extremity: Pulses equal, no cyanosis. Neurovascular intact. Full, normal range of motion. Neuro: Awake and alert, GCS 15, oriented to person, place, time, and situation. Cranial nerves II-XII grossly intact. Motor strength 5/5 in all extremities. Sensory grossly intact. Psych: Awake, alert, with orientation to person, place and time. Behavior, mood, and affect are within normal limits ECG was reviewed by the Attending Physician. EKG at 2022 normal sinus rhythm rate 79. Vital Signs: 20:16 BP 171 / 104; Pulse 82; Resp 17; Temp 96.7(TE); Pulse Ox 100% on R/A; Weight 81.65 kg; lg3 Height 5 ft. 2 in. ; 11/05 01:13 BP 140 / 93; Pulse 80; Resp 18; Temp 97.9; Pulse Ox 95% ; vc1 11/04 20:16 Body Mass Index 32.92 (81.65 kg, 157.48 cm) lg3 [place] Coma Score: 11/04 23:55 Eye Response: spontaneous(4). Motor Response: obeys commands(6). Verbal Response: sp4 oriented(5). Total: 15. MDM: 20:24 Medical Screening Exam initiated sp4 21:30 ED course: EXAMINATION: ONE VIEW CHEST XR CLINICAL INDICATION: CHEST PAIN TECHNIQUE: sp4 Frontal chest projection is submitted. Examination is limited by patient positioning and technique. COMPARISON: No prior exam. FINDINGS: Mild interstitial pulmonary edema may be present. Heart is mildly enlarged in size. No displaced fractures identified. IMPRESSION: Possible mild CHF pattern. . 11/05 00:01 ED course: CT chest today - ADDITIONAL FINDINGS: Moderate fat-containing ventral sp4 hernia. IMPRESSION: No evidence of thoracic or abdominal aortic aneurysm or dissection. Advanced fatty liver. . 21:08 Differential diagnosis: acute pericarditis, anxiety, chest wall pain, esophagitis, sp4 gastritis. HEART Score: History: Slightly Suspicious (0), ECG: Normal (0), Age: < or = 45 years (0), Risk Factors: 1 or 2 risk factors (1), Troponin: < or = 1 x Normal Limit (0), Total Score = 1. Data reviewed: vital signs, nurses notes, old medical records, lab test result(s), EKG, radiologic studies, CT scan. ED course: Cardiac workup negative today, no sign of thoracic aortic dissection. Patient advised to see quantitative analyst developer for outpatient follow-up. Pain completely resolved after p.o. Valium. Patient prescribed as needed Valium for anxiety. Losartan and HCTZ for hypertension. Further patient was prescribed atorvastatin for risk reduction.. 11/04 20:24 Order name: Basic Metabolic Panel; Complete Time: 21:30 [facility] 11/04 20:24 Order name: CBC with Diff; Complete Time: 21: [facility] 11/04 20:24 Order name: LFT's; Complete Time: 21:30 [facility] 11/04 20:24 Order name: NT PRO-BNP; Complete Time: 21:30 [facility] 11/04 20:24 Order name: PT-INR; Complete Time: 21: [facility] 11/04 20:24 Order name: Troponin HS; Complete Time: 21:30 [facility] 11/04 22:52 Order name: Troponin High Sensitivity; Complete Time: 23:50 [facility] 11/04 20:24 Order name: XRAY Chest (1 view); Complete Time: 21:30 [facility] 11/04 21:01 Order name: CT Aorta for Dissection; Complete Time: 22:52 sp4 11/04 20:24 Order name: EKG; Complete Time: 20:25 sp4 11/04 22:59 Order name: EKG; Complete Time: 22:59 sp4 11/04 20:24 Order name: Cardiac monitoring; Complete Time: 21:04 sp4 11/04 20:24 Order name: EKG - Nurse/Tech; Complete Time: 20:30 sp4 11/04 20:24 Order name: IV Saline Lock; Complete Time: 20:38 sp4 11/04 20:24 Order name: Labs collected and sent; Complete Time: 20:38 sp4 11/04 20:24 Order name: O2 Per Protocol; Complete Time: 20:30 sp4 11/04 20:24 Order name: O2 Sat Monitoring; Complete Time: 20:30 sp4 11/04 22:59 Order name: EKG - Nurse/Tech; Complete Time: 23:06 sp4 EC/02 20:23 Rate is 79 beats/min. Rhythm is regular, Normal Sinus Rhythm. QRS [place] is Normal. PA sp4 interval is normal. QRS interval is normal. QT interval is normal. No Q waves. T waves are Normal. No ST changes noted. Clinical impression: No evidence of ischemia. Interpreted by me. Reviewed by me. Administered Medications: 21:25 Drug: Losartan PO 100 mg PO once Route: PO; cp4 22:00 Follow up: Response: No adverse reaction cp4 21:25 Drug: Hydrochlorothiazide PO 25 mg PO once Route: PO; cp4 22:00 Follow up: Response: No adverse reaction cp4 21:25 Drug: morphine IVP or IV 4 mg IVP once over 4 mins Route: IVP; Infused Over: 4 mins; cp4 Site: right antecubital; 22:01 Follow up: Response: No adverse reaction cp4 21:25 Drug: Gabapentin PO 900 mg PO once Route: PO; cp4 22:01 Follow up: Response: No adverse reaction cp4 21:25 Drug: Ondansetron IVP 4 mg IVP once; over 2 minutes Route: IVP; Site: right antecubital;cp4 22:01 Follow up: Response: No adverse reaction cp4 21:25 Drug: NS 0.9% IV 1000 ml IV at 1 bolus Per protocol; to be given as a bolus over 60 cp4 minutes Route: IV; Rate: 1 bolus; Site: right antecubital; 22:25 Follow up: IV Status: Completed infusion; IV Intake: 1000ml vc1 23:10 Drug: Diazepam PO 5 mg PO once Route: PO; cp4 11/05 01:14 Follow up: Response: No adverse reaction; Marked relief of symptoms vc1 11/04 23:10 Drug: HYDROcodone-acetaminophen PO 5 mg-325 mg 2 tabs PO once Route: PO; cp4 11/05 01:14 Follow up: Response: No adverse reaction; Marked relief of symptoms vc1 Disposition Summary: 11/04/24 23:58 Discharge Ordered Notes: Location: Home sp4 Problem: new sp4 Symptoms: have improved sp4 Condition: Stable sp4 Diagnosis - Chest pain, unspecified sp4 - Uncontrolled hypertension, Acute anxiety, noncardiac chest pain sp4 Followup: sp4 - With: Davey Cruz MD - When: 7 - 10 days - Reason: Recheck today's complaints Discharge Instructions: - Discharge Summary Sheet sp4 - Hypertension, Adult, [id number] sp4 Forms: - Work release form vc1 - Patient Portal Instructions sp4 Prescriptions: - atorvastatin 10 mg Oral tablet - take 1 tablet ORAL route daily; 90 tablet; Refills: 0, Product Selection sp4 Permitted - losartan 100 mg Oral tablet - take 1 tablet ORAL route daily; 90 tablet; Refills: 0, Product Selection sp4 Permitted - Valium 5 mg Oral tablet - take 1 tablet ORAL route once daily As needed PRN anxiety attacks; 20 tablet; sp4 Refills: 0, Product Selection Permitted - Hydrochlorothiazide 25 mg Oral tablet - take 1 tablet ORAL route once daily .; 90 tablet; Refills: 0, Product Selection sp4 Permitted Signatures: Dispatcher [employer] EDKristina Jones RN RN lg3 Hai Tsai MD MD sp4 Shira Gutierrez cp4 Nunu Olvera RN vc1 Corrections: (The following items were deleted from the chart) 11/04 20:25 20:25 BASIC METABOLIC PANEL+C.LAB.BRZ ordered. EDMS EDMS 20:25 20:25 CBC+H.LAB.BRZ ordered. EDMS EDMS 20:25 20:25 HEPATIC FUNCTION+C.LAB.BRZ ordered. EDMS EDMS 20:25 20:25 PROBNP+C.LAB.BRZ ordered. EDMS EDMS 20:25 20:25 PROTIME (+INR)+COAG.LAB.BRZ ordered. EDMS EDMS 20:25 20:25 Troponin High Sensitivity+C.LAB.BRZ ordered. EDMS EDMS
[2024-11-05 09:04] VITALS: BP 140/93; TEMP 97.9; O2SAT 95
--- NOTE | 2024-11-05 12:39 | EKG ---
Test Date: 2024-11-04 Test Time: 23:06:17 Non Destructive Testing Scientist: AF MEASUREMENT RESULTS: Intervals: Rate: 77 FL: 190 QRSD: 90 QT: 434 QTc: 491 [place]: P: 59 FL: 190 QRS: 8 T: 58 INTERPRETIVE STATEMENTS: Normal sinus rhythm Septal infarct, age undetermined Abnormal ECG Compared to ECG 11/04/2024 20:23:17 No significant changes Electronically Signed On 11-05-24 12:39:00 [employer] WORK[employer] by Erik Oconnor
--- NOTE | 2024-11-05 12:41 | EKG ---
Test Date: 2024-11-04 Test Time: 20:23:17 Senior Geologist: JOSE MEASUREMENT RESULTS: Intervals: Rate: 79 RI: 188 QRSD: 98 QT: 414 QTc: 474 [place]: P: -1 RI: 188 QRS: 36 T: -1 INTERPRETIVE STATEMENTS: Normal sinus rhythm Septal infarct, age undetermined Abnormal ECG Compared to ECG 04/21/2024 07:52:57 Prolonged QT interval no longer present Myocardial infarct finding still present Electronically Signed On 11-05-24 12:39:27 BILINGUAL ADMINISTRATIVE ASSISTANT by Erik Oconnor
== END 2024-11-05 01:14 | disposition home or self-care (01) ==
LOC: ER 20:14
DX: R07.89 Other chest pain (principal); I10 Essential (primary) hypertension; F41.9 Anxiety disorder, unspecified
CPT/HCPCS: 96361; 93005 ×2; 85025; 80048; 36415; 85610; 80076; 84484 ×2; 83880; 71275; 74175; 71045; 96375; 96374; 99285; Q9967; J2405; J7030